=== PATIENT | male | born 1980 | race Caucasian/White ===

== ENCOUNTER 2024-06-14 17:27 | Emergency (ER) | payer MEDICAID, OTHER ==
[2024-06-14 18:16] LABS: BASOPHILS ABSOLUTE AUTO 0.04 K/uL (0.00-0.10); BASOPHILS PERCENT AUTO 0.4 % (0.1-1.3); EOSINOPHILS ABSOLUTE AUTO 0.04 K/uL (0.00-0.40); EOSINOPHILS PERCENT AUTO 0.4 % (0.0-5.4); HEMATOCRIT 42.7 % (38.4-49.7); HEMOGLOBIN 15.1 g/dL (12.9-16.9); IMMATURE GRAN ABSOLUTE AUTO 0.04 K/uL (0.00-0.23); IMMATURE GRAN PERCENT AUTO 0.4 % (0.0-0.7); LYMPHOCYTES ABSOLUTE AUTO 1.32 K/uL (0.8-3.3); MEAN CORPUSCULAR HEMOGLOBIN 29.5 pg (31.6-35.5); MEAN CORPUSCULAR HGB CONC 35.4 g/dL (31.6-35.5); MEAN CORPUSCULAR VOLUME 83.4 fL (81.4-99.0); MONOCYTES ABSOLUTE AUTO 0.75 K/uL (0.20-0.90); MONOCYTES PERCENT AUTO 7.4 % (3.3-12.6); NEUTROPHILS ABSOLUTE AUTO 7.98 K/uL (1.0-7.6); NEUTROPHILS PERCENT AUTO 78.4 % (40.0-78.1); PLATELET COUNT,PLT 211 K/uL (130-375); RED BLOOD CELL COUNT 5.12 M/uL (4.14-5.76); WHITE BLOOD CELL COUNT,WBC 10.2 K/uL (3.2-11.0)
[2024-06-14] MEDS ORDERED: Sodium Chloride 0.9% 10 ML Syringe FLUSH PRN (18:19)
[2024-06-14 18:42] LABS: A/G RATIO 1.1 (1.2-2.2); ALANINE AMINOTRANSFERASE,ALT 32 U/L (12-78); ALBUMIN 4.2 g/dL (3.4-5.0); ALKALINE PHOSPHATASE 74 U/L (46-116); ANION GAP 12.9 mmol/L (5.0-14.0); ASPARTATE AMNIOTRANSFERASE,AST 28 U/L (15-37); BILIRUBIN TOTAL 0.6 mg/dL (0.2-1.0); BLOOD UREA NITROGEN,BUN 14 mg/dL (7-18); CALCIUM 8.8 mg/dL (8.5-10.1); CARBON DIOXIDE,CO2 30 mmol/L (21-32); CHLORIDE,CL 99 mmol/L (100-108); CREATININE 1.1 mg/dL (0.8-1.3); EST CRCL DRUG DOSING (CG) 82.05 mL/min; ESTIMATED GFR 84 mL/min (>60); GLUCOSE RANDOM 90 mg/dL (74-106); POTASSIUM,K 3.9 mmol/L (3.6-5.2); PROTEIN TOTAL,TP 8.1 g/dL (6.4-8.2); SODIUM,NA 138 mmol/L (140-148); TROPONIN I HIGH SENSITIVITY < 4.0 pg/mL (<=60.3)
[2024-06-14 18:48] LABS: APPEARANCE,URINE CLEAR (CLEAR); BILIRUBIN,URINE NEGATIVE (NEGATIVE); COLOR,URINE YELLOW (YELLOW); GLUCOSE,URINE NEGATIVE (NEGATIVE); KETONES,URINE NEGATIVE (NEGATIVE); LEUKOCYTE ESTERASE,URINE NEGATIVE (NEGATIVE); NITRITE,URINE NEGATIVE (NEGATIVE); OCCULT BLOOD,URINE NEGATIVE (NEGATIVE); PROTEIN,URINE NEGATIVE (NEGATIVE); UROBILINOGEN,URINE 0.2 EU/dL (0.2-1.0)
[2024-06-14 18:54] LABS: AMORPHOUS SEDIMENT,URINE NOT SEEN; AMPHETAMINES SCREEN, URINE NEGATIVE (NEGATIVE); BACTERIA,URINE NOT SEEN; BARBITURATE SCREEN,URINE NEGATIVE (NEGATIVE); BENZODIAZEPINES SCREEN,URINE NEGATIVE (NEGATIVE); EPITHELIAL CELLS,URINE NOT SEEN; METHADONE SCREEN, URINE NEGATIVE (NEGATIVE); METHAMPHETAMINES SCREEN, URINE NEGATIVE (NEGATIVE); MUCUS,URINE NOT SEEN; OXYCODONE SCREEN,URINE NEGATIVE (NEGATIVE); PROPOXYPHENE SCREEN,URINE NEGATIVE (NEGATIVE); RBC,URINE 0-5 (0-5); THC SCREEN,URINE 50 NG/ML PRESUMPTIVE POSITIVE (NEGATIVE); WBC,URINE 0-5 (0-5)
[2024-06-14] MEDS: Acetaminophen 500 MG Tab PO ONE (19:01)
[2024-06-14] MEDS: Labetalol 20 MG/4 ML Syringe IVPUSH ONE (19:09)
[2024-06-14] MEDS: amLODIPine 5 MG Tab PO ONE (19:23)
== END 2024-06-14 20:15 | disposition home or self-care (01) ==
LOC: EDBD 17:27 → JP.ED 17:27 → MERGE 17:27 → JP.ED 20:15
DX: I16.9 Hypertensive crisis, unspecified (principal); Z87.891 Personal history of nicotine dependence; Z88.0 Allergy status to penicillin; Z79.899 Other long term (current) drug therapy
CPT/HCPCS: 36415; 70450; 80053; 80305; 81001; 84484; 85025; 93005; 93010; 99284; A9270